=== PATIENT | female | born 2000 | race Caucasian/White ===

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

== ENCOUNTER 2018-08-31 12:29 | Emergency (ER) | payer MEDICAID, SELFPAY | END 2018-08-31 13:06 | disposition left against medical advice (07) | LOC: M ED 12:29 | DX: Z53.29 Procedure and treatment not carried out because of patient's decision for other reasons (principal) ==

== ENCOUNTER 2018-09-05 07:22 | Emergency (ER) | payer MEDICAID ==
[2018-09-05] MEDS: NS 1,000 ML IV (07:45)
[2018-09-05 08:17] LABS: BASO % 0.5 % (0.0-1.0); EOS % 0.2 % (0.0-3.0); HEMOGLOBIN 14.3 g/dl (12.0-15.5); IMMATURE GRANULOCYTE % 0.2 % (0-3.0); LYMPH # 2.7 10^3/uL (1.5-6.5); LYMPH % 31.9 % (24.0-44.0); MEAN CORPUSCULAR HEMOGLOBIN 29.7 pg (27.0-33.0); MEAN CORPUSCULAR VOLUME 87.3 fl (80.0-96.0); MONO # 0.6 10^3/uL (0.0-0.8); MONO % 6.7 % (0.0-5.0); NEUTROPHILS # 5.1 10^3/uL (1.8-7.7); NEUTROPHILS % 60.5 % (36.0-66.0); PLATELET COUNT, AUTOMATED 322 10^3/uL (150-450); RED BLOOD COUNT 4.81 10^6/uL (4.00-5.40); RED CELL DISTRIBUTION WIDTH 12.7 % (11.5-14.5); WHITE BLOOD COUNT 8.5 10^3/uL (4.0-10.0)
[2018-09-05 08:30] LABS: KETONE, URINE AUTO RFX 1+ mg/dL (NEGATIVE); LEUKOCYTE ESTERASE UR AUTO RFX NEGATIVE (NEGATIVE); MUCUS, URINE RFX SMALL (NEGATIVE); NITRITE, URINE AUTO RFX NEGATIVE (NEGATIVE); RBC, URINE AUTO RFX 1 /HPF (0-3); SPECIFIC GRAVITY UR AUTO RFX 1.011 (1.002-1.035); SQUAM EPITHELIAL CELL UR AURFX 3 /HPF (0-6); WBC, URINE AUTO RFX 1 /HPF (0-3)
[2018-09-05 08:55] LABS: HCG, SERUM QUANTITATIVE 8885 MIU/ML
== END 2018-09-05 09:31 | disposition home or self-care (01) ==
LOC: M ED 07:22
DX: Z32.01 Encounter for pregnancy test, result positive (principal); O26.851 Spotting complicating pregnancy, first trimester; O99.341 Other mental disorders complicating pregnancy, first trimester; Z79.899 Other long term (current) drug therapy
CPT/HCPCS: 76801

== ENCOUNTER → 2018-09-25 | Outpatient (CLI) | payer MEDICAID ==
[2018-09-25 18:21] LABS: BASO % 0.2 % (0.0-1.0); EOS % 0.1 % (0.0-3.0); HEMATOCRIT 41.7 % (36.0-47.0); HEMOGLOBIN 13.9 g/dl (12.0-15.5); IMMATURE GRANULOCYTE % 0.4 % (0-3.0); LYMPH # 2.2 10^3/uL (1.5-6.5); LYMPH % 20.1 % (24.0-44.0); MEAN CORPUSCULAR HEMOGLOBIN 29.8 pg (27.0-33.0); MEAN CORPUSCULAR HGB CONC 33.3 g/dl (32.0-36.5); MEAN CORPUSCULAR VOLUME 89.3 fl (80.0-96.0); MONO # 0.7 10^3/uL (0.0-0.8); MONO % 6.5 % (0.0-5.0); NEUTROPHILS # 8.1 10^3/uL (1.8-7.7); NEUTROPHILS % 72.7 % (36.0-66.0); PLATELET COUNT, AUTOMATED 320 10^3/uL (150-450); RED BLOOD COUNT 4.67 10^6/uL (4.00-5.40); RED CELL DISTRIBUTION WIDTH 12.8 % (11.5-14.5); WHITE BLOOD COUNT 11.2 10^3/uL (4.0-10.0)
[2018-09-25 21:17] LABS: CHLAMYDIA DNA AMPLIFICATION NEGATIVE (NEGATIVE); GC DNA AMPLIFICATION NEGATIVE (NEGATIVE)
[2018-09-27 12:00] LABS: HBsAg Prenatal NEGATIVE (NEGATIVE); HIV 1&2 SCREEN CENTAUR NEGATIVE (NEGATIVE); RUBELLA IgG QUALITATIVE IMMUNE (IMMUNE)
[2018-09-27 12:00] LABS: HEPATITIS C VIRUS ABY INDEX 0.1 INDEX (<0.8)
== END ==
LOC: M SMT 15:09
DX: Z36.89 Encounter for other specified antenatal screening (principal)
CPT/HCPCS: 86762

== ENCOUNTER → 2018-12-04 | Outpatient (CLI) | payer OTHER ==
[~2018-12-04] MED LIST changes: +PREN1TAB11 PO
--- NOTE | 2018-12-04 19:18 | REP ---
OB ULTRASOUND: Real-time sonographic evaluation of the gravid uterus is performed. There is a single living intrauterine gestation. The estimated gestational age is 18 weeks 5 days, EDC 05/02/2019, today's measurements indicate appropriate growth. BPD 41 mm = 18 weeks 3 days, at the 42nd percentile. HC 148 mm = 17 weeks 6 days, at the 20th percentile. AC 123 mm = 18 weeks 0 days, at the 31st percentile. Femur length 28 mm = 18 weeks 5 days, at the 49th percentile. HC/AC ratio 1.20 within normal range. Estimated weight 232 grams, 31st percentile. Cervix is closed and measures 3.5 cm in length. heart rate 141 beats per minute. SEEN/GROSSLY UNREMARKABLE Lateral ventricles Yes Posterior fossa Yes Upper lip Yes Four-chamber heart No LVOT No RVOT No Stomach Yes Cord insertion Yes Three vessel cord Yes Kidneys Yes Bladder Yes Spine No position: Breech. Placenta: Posterior and low lying, grade 1 with no previa or abruption. Placenta tip is 2.2 cm from the internal cervical os. Amniotic fluid within normal limits. Electronically Signed by David Herring MD 12/04/2018 08:23 P
== END ==
LOC: M SMT 14:29
PROVIDERS: ATTEND Obstetrics & Gynecology
DX: Z34.82 Encounter for supervision of other normal pregnancy, second trimester (principal); Z3A.18 18 weeks gestation of pregnancy

== ENCOUNTER → 2018-12-05 | Outpatient (REF) | payer OTHER | LOC: M LAB REF 17:10 | PROVIDERS: ATTEND Obstetrics & Gynecology | DX: R30.0 Dysuria (principal); M54.5 Low back pain ==

== ENCOUNTER → 2019-01-09 | Outpatient (CLI) | payer OTHER ==
--- NOTE | 2019-01-10 09:57 | REP ---
OB ULTRASOUND: Real-time sonographic evaluation of the gravid uterus performed. There is a single living intrauterine gestation, estimated gestational age 23 weeks 6 days. EDC 05/02/2019. Today's measurements indicate appropriate growth. BPD 53 mm 22 weeks 0 days, less than 5th percentile HC 209 mm 23 weeks 0 days, 22nd percentile AC 177 mm 22 weeks 4 days, 23rd percentile FL 40 mm 22 weeks 6 days, 24th percentile HC/AC ratio 1.18 within normal range. Estimated weight 532 grams, 14th percentile. Cervix is closed and measures 3.6 cm in length. heart rate 136 beats per minute. SEEN/GROSSLY UNREMARKABLE Lateral ventricles Yes Posterior fossa Yes Upper lip Yes Four-chamber heart Yes LVOT Yes RVOT Yes Stomach Yes Cord insertion Yes Three vessel cord Yes Kidneys Yes Bladder Yes Spine No Echogenic focus in left ventricle likely related to chordae tendineae. position: Breech. Placenta: Posterior and grade I with no previa or abruption. Amniotic fluid: Within normal limits. Electronically Signed by David Herring MD 01/10/2019 07:50 P
== END ==
LOC: M RAD 17:22
PROVIDERS: ATTEND Advanced Practice Midwife
DX: Z34.02 Encounter for supervision of normal first pregnancy, second trimester (principal); Z3A.23 23 weeks gestation of pregnancy

== ENCOUNTER → 2019-01-27 | Outpatient (CLI) | payer OTHER ==
--- NOTE | 2019-01-28 10:56 | REP ---
Clinical: Anatomical evaluation. Comparison: 01/09/2019 . Findings: Examination demonstrates a single live intrauterine in the cephalic presentation. motion is identified by technologist. Placenta is noted posterior and grade grade 1 without evidence for placenta previa or abruption. Amniotic fluid volume is normal. Cervix measures 3.7 cm in length and appears closed. No evidence for nuchal cord. Gestational age by LMP 26 weeks 3 days with GANGA 05/02/2019 . Gestational age by current measurements 25 weeks 5 days with GANGA 05/07/2019 . FHR equals 147 beats per minute. Estimated weight 852 grams (27th percentile). Anatomical assessment demonstrates normal structures including spine. The echogenic focus within the left cardiac ventricle is again identified and unchanged - likely representing prominent chordae tendineae. Impression: Single live intrauterine in cephalic presentation demonstrating appropriate interval growth. Echogenic focus within the left cardiac ventricle remains stable. Electronically Signed by Trell Johnson MD 01/28/2019 10:48 A
== END ==
LOC: M RAD 17:48
PROVIDERS: ATTEND Advanced Practice Midwife
DX: Z34.02 Encounter for supervision of normal first pregnancy, second trimester (principal); Z3A.25 25 weeks gestation of pregnancy

== ENCOUNTER → 2019-02-10 | Outpatient (CLI) | payer OTHER ==
[2019-02-10 16:34] LABS: BASO % 0.2 % (0.0-1.0); EOS % 0.1 % (0.0-3.0); HEMATOCRIT 34.4 % (36.0-47.0); HEMOGLOBIN 11.5 g/dl (12.0-15.5); LYMPH # 2.5 10^3/uL (1.5-6.5); LYMPH % 17.6 % (24.0-44.0); MEAN CORPUSCULAR HEMOGLOBIN 30.5 pg (27.0-33.0); MEAN CORPUSCULAR HGB CONC 33.4 g/dl (32.0-36.5); MEAN CORPUSCULAR VOLUME 91.2 fl (80.0-96.0); MONO # 0.7 10^3/uL (0.0-0.8); MONO % 4.9 % (0.0-5.0); NEUTROPHILS # 10.8 10^3/uL (1.8-7.7); NEUTROPHILS % 76.8 % (36.0-66.0); PLATELET COUNT, AUTOMATED 305 10^3/uL (150-450); RED BLOOD COUNT 3.77 10^6/uL (4.00-5.40)
== END ==
LOC: M LAB 15:00
PROVIDERS: ATTEND Advanced Practice Midwife
DX: Z34.02 Encounter for supervision of normal first pregnancy, second trimester (principal); Z3A.00 Weeks of gestation of pregnancy not specified

== ENCOUNTER 2019-02-12 23:29 | Outpatient (CLI) | payer OTHER ==
[~2019-02-12] VITALS: Ht 154.9 cm; Wt 69.8 kg
[2019-02-12 23:55] VITALS: BP 128/69
[2019-02-13 01:01] LABS: APPEARANCE, URINE CLEAR (CLEAR); BACTERIA, URINE AUTO NEGATIVE (NEGATIVE); BILIRUBIN, URINE AUTO NEGATIVE (NEGATIVE); BLOOD, URINE BLOOD NEGATIVE (NEGATIVE); COLOR, URINE YELLOW (YELLOW); GLUCOSE, URINE (UA) AUTO NEGATIVE (NEGATIVE); KETONE, URINE AUTO NEGATIVE (NEGATIVE); LEUKOCYTE ESTERASE, URINE AUTO TRACE (NEGATIVE); MUCUS, URINE SMALL (NEGATIVE); NITRITE, URINE AUTO NEGATIVE (NEGATIVE); PROTEIN, URINE AUTO NEGATIVE (NEGATIVE); RBC, URINE AUTO 10 /HPF (0-3); SPECIFIC GRAVITY URINE AUTO 1.012 (1.002-1.035); SQUAMOUS EPITHELIAL CELL UR AU 3 /HPF (0-6); UROBILINOGEN, URINE AUTO 0.2 mg/dL (0.0-2.0); WBC, URINE AUTO 4 /HPF (0-3)
[2019-02-13 01:13] VITALS: BP 137/79
--- NOTE | 2019-02-13 07:52 | IPN ---
DATE: 02/13/2019 Jimmy is a 18-year-old 1, para 0 at 28 weeks gestation with an EDC of 05/02/2018 based on last menstrual period and confirmed by first trimester ultrasound. She presents to labor and delivery today with a complaint of left sided back pain that radiates around the left hip, left buttock, and down the left thigh behind the knee. She reports some difficulty becoming comfortable trying to rest. Difficulty walking from time to time due to the discomfort. She denies regular contractions that are painful. She denies vaginal bleeding or leakage of fluid. The fetus has been active. She denies urinary signs and symptoms, dysuria, burning and pressure. Denies unusual vaginal discharge, odor, and irritation. Her care was initiated at [facility] in the first trimester. Her course has been uncomplicated thus for. OBSTETRIC HISTORY: She is primigravida. OBSTETRIC LABS: O positive, antibody screen negative, rubella immune, VDRL nonreactive. Urine culture no growth. Hep B surface antigen negative, HIV negative. Hep C antibody nonreactive. Gonorrhea and chlamydia negative. Panorama testing is low risk for aneuploidy with a male fetus. Gestational diabetic screening elevated at 131. She has not had her 3-hour glucose tolerance test. PAST MEDICAL HISTORY: Anxiety and depression. SURGERIES: Tympanostomy and tonsils and adenoidectomy. FAMILY HISTORY: Asthma. Skin cancer. Uterine cancer. SOCIAL HISTORY: The patient is single. Her partner is not at bedside, but it appears her mom is and she is supportive. She is a nonsmoker. Denies alcohol and drug use. No history of any sexually transmitted infections and denies history of abuse physical, sexual and emotional. OBJECTIVE: Temperature 97.5, pulse 96, BP 128/69. She is alert and oriented times three, smiling and talkative. She does not appear in any distress. Her abdomen is gravid, cephalic presentation. heart rate is 130 with moderate variability, positive excels 10 x 10, heart rate is appropriate for gestational age. There is no pattern of contractions. Sterile vaginal exam - long, thick, closed, firm, posterior. ASSESSMENT: Intrauterine at 28 weeks gestation. heart rate is appropriate for gestational age likely sciatica pain. PLAN: Reviewed palliative measures related to sciatica pain. Reviewed signs and symptoms of labor, kick counts and access to care. The patient and her family member have had all their questions answered and are agreeable to be discharged home. She is to keep her regular scheduled appointment and she was informed of her abnormal gestational diabetic screening and the need to call the office to get scheduled for a 3-hour glucose tolerance test.
== END 2019-02-13 01:30 | disposition home or self-care (01) ==
LOC: M LDO 23:29
PROVIDERS: ATTEND Advanced Practice Midwife
DX: O47.02 False labor before 37 completed weeks of gestation, second trimester (principal); Z3A.28 28 weeks gestation of pregnancy; O99.343 Other mental disorders complicating pregnancy, third trimester; M54.32 Sciatica, left side; O26.893 Other specified pregnancy related conditions, third trimester

== ENCOUNTER → 2019-04-10 | Outpatient (CLI) | payer OTHER ==
[2019-04-10 17:37] LABS: HEMATOCRIT 36.4 % (36.0-47.0); HEMOGLOBIN 12.1 g/dl (12.0-15.5); MEAN CORPUSCULAR HEMOGLOBIN 29.7 pg (27.0-33.0); MEAN CORPUSCULAR HGB CONC 33.2 g/dl (32.0-36.5); MEAN CORPUSCULAR VOLUME 89.2 fl (80.0-96.0); PLATELET COUNT, AUTOMATED 311 10^3/uL (150-450); RED BLOOD COUNT 4.08 10^6/uL (4.00-5.40); WHITE BLOOD COUNT 16.8 10^3/uL (4.0-10.0)
[2019-04-10 17:40] LABS: ALT/SGPT 23 U/L (12-78); BILIRUBIN,TOTAL 0.2 MG/DL (0.2-1.0); CREATININE FOR GFR 0.73 MG/DL (0.55-1.30); LDH LACTATE DEHYDROGENASE 224 U/L (84-246); URIC ACID 4.4 MG/DL (2.6-6.0)
[2019-04-10 17:58] LABS: CREATININE,RANDOM URINE 98.8 MG/DL; TOTAL PROTEIN,RANDOM URINE 18.7 MG/DL (0.0-12.0)
[2019-04-11 10:35] LABS: HIV 1&2 SCREEN CENTAUR NEGATIVE (NEGATIVE)
== END ==
LOC: M SMT 14:36
PROVIDERS: ATTEND Advanced Practice Midwife
DX: Z34.83 Encounter for supervision of other normal pregnancy, third trimester (principal); Z3A.00 Weeks of gestation of pregnancy not specified

== ENCOUNTER → 2019-04-10 | Outpatient (REF) | payer OTHER | LOC: M LAB REF 16:53 | PROVIDERS: ATTEND Advanced Practice Midwife | DX: Z34.83 Encounter for supervision of other normal pregnancy, third trimester (principal); Z3A.00 Weeks of gestation of pregnancy not specified ==

== ENCOUNTER 2019-05-02 00:16 | Inpatient (IN) | payer OTHER ==
[~2019-05-02] VITALS: Ht 154.9 cm; Wt 73.9 kg
[2019-05-02] VITALS (28 sets, daily range): BP systolic 122–147; BP diastolic 66–95
[2019-05-02] MEDS ORDERED: LR 1,000 ML IV SCH (01:19)
[2019-05-02] MEDS ORDERED: OXYTOCIN DRIP 30 UNITS in APPROPRIATE DILUENT 1 EA IV SCH ×3 (01:30→19:39)
--- NOTE | 2019-05-02 01:57 | HPEPDOC ---
Obstetrical History & Physical General Date of Admission May 02, 2019 at 01:14 History of Present Illness Jimmy is a 40 0/7 who presents to L and D with contractions. Pt's GANGA of 05/02 confirmed by 1st trimesters US. Pt states contractions started Sundaych have continually inc in intensity. Presently contractions are 8m apart with moderate intensity. Good movement is appreciated. Pt notes a small amount of light pink vaginal discharge. Chief Complaint: Contractions, term Information Provided By: Patient Age: 19 : 1 Term: 0 Pre-term: 0 Abortions: 0 Livin Care Care: Good Care Dating Final EDC: May 02, 2019 Past Medical History Past Obstetrical History : Past Obstetrical History: Primgravida Past Medical History Medical History DANY and Depression Family History Family History ASD-Brother Social History Marital Status: Single * Smoker: non-smoker Alcohol: Denies Allergies Coded Allergies: No Known Allergies (Unverified , 04/04/13) Medications Scheduled Vit No.124/Iron/Folic ( Vitamin Tablet) 1 Tab Tab, 1 TAB PO DAILY Physical Examination Physical Examination GENERAL: Alert and oriented times three. BREAST: . ABDOMEN: Gravid and non-tender to touch. FETUS: Is vertex (VTX) by sterile vaginal examination (SVE), fetus is vertex (VTX) by Boris. HEART RATE: Regular rate and rhythm. LUNGS: Clear to auscultation (CTA). EXTREMITIES: No edema. No clonus. Deep tendon reflexes (DTRs) + . Vital Signs/I&O Vital Signs Date Time Temp Pulse Resp B/P (MAP) Pulse Ox O2 Delivery O2 Flow Rate FiO2 05/02/19 00:32 98.0 98 128/69 (88) Laboratory Data 24H LABS Laboratory Tests 2 05/02/19 01:33: Serology Scanned Report Hepatitis B Testing Pertinent Laboratoy Data Blood Type: O+ RBC Antibody Screen: Negative HIV: Negative Hepatitis B: Negative Hepatitis C: Negative Rapid Plasma Reagin: Nonreactive Rubella: Immune Chlamydia/Gonorrhea: Negative Group B Streptococcus: Negative Assessment/Plan Assessment Jimmy is a 19-year-old (G)1 para (P)0 at 40+0/7 weeks by 8-week ultrasound. Presents to Labor and Delivery (L&D) for onset of labor. Plan Admit on 05/02/19. Rn Pacu and consent. Labs and intravenous (IV) per unit protocol. Counseled on Pitocin and induction of labor (IOL). Anticipate normal spontaneous delivery (). C-S as appropriate. ZACHARY WARREN Aguila-3 May 02, 2019 01:57
[2019-05-02] MEDS ORDERED: miSOPROStol 50 MCG 1/2 TAB (S0191) SL SCH (02:00)
[2019-05-02 02:13] LABS: HEMATOCRIT 34.2 % (36.0-47.0); HEMOGLOBIN 11.4 g/dl (12.0-15.5); MEAN CORPUSCULAR HEMOGLOBIN 29.5 pg (27.0-33.0); MEAN CORPUSCULAR HGB CONC 33.3 g/dl (32.0-36.5); MEAN CORPUSCULAR VOLUME 88.6 fl (80.0-96.0); PLATELET COUNT, AUTOMATED 292 10^3/uL (150-450); RED BLOOD COUNT 3.86 10^6/uL (4.00-5.40); WHITE BLOOD COUNT 14.8 10^3/uL (4.0-10.0)
--- NOTE | 2019-05-02 07:38 | IPNPDOC ---
Text Note Date of Service The patient was seen on 05/02/19. NOTE Reports SROM clear fluid that continues to leak @ 0330. Remains comfortable but states she's starting to be more uncomfortable at times FH 130, Cat I UC 2-4 minutes x 45-60 seconds SVE 2/80/-2, membranes are palpable Start pitocin augmentation. Pt is planning epidural Anticipate NSVB VS,Fishbone, I+O VS, Fishbone, I+O Laboratory Tests 05/02/19 01:48 Red Blood Count 3.86 L, Mean Corpuscular Volume 88.6, Mean Corpuscular Hemoglo bin 29.5, Mean Corpuscular Hemoglobin Concent 33.3, Red Cell Distribution Width 13.3 Vital Signs Date Time Temp Pulse Resp B/P (MAP) Pulse Ox O2 Delivery O2 Flow Rate FiO2 05/02/19 02:51 85 145/95 (112) 05/02/19 00:32 98.0 Seema Tavera CNM May 02, 2019 07:38
[2019-05-02] MEDS: LR 1,000 ML IV SCH ×2 (08:07→13:53)
[2019-05-02 08:43] LABS: HEMATOCRIT 33.4 % (36.0-47.0); HEMOGLOBIN 11.2 g/dl (12.0-15.5); MEAN CORPUSCULAR HEMOGLOBIN 29.8 pg (27.0-33.0); MEAN CORPUSCULAR HGB CONC 33.5 g/dl (32.0-36.5); MEAN CORPUSCULAR VOLUME 88.8 fl (80.0-96.0); PLATELET COUNT, AUTOMATED 282 10^3/uL (150-450); RED BLOOD COUNT 3.76 10^6/uL (4.00-5.40); WHITE BLOOD COUNT 13.3 10^3/uL (4.0-10.0)
[2019-05-02 09:14] LABS: ALT/SGPT 15 U/L (12-78); BILIRUBIN,TOTAL 0.2 MG/DL (0.2-1.0); CREATININE FOR GFR 0.67 MG/DL (0.55-1.30); LDH LACTATE DEHYDROGENASE 188 U/L (84-246); URIC ACID 5.1 MG/DL (2.6-6.0)
--- NOTE | 2019-05-02 12:59 | IPNPDOC ---
Text Note Date of Service The patient was seen on 05/02/19. NOTE Pitocin @ 4mu UC irregular, mild FH 130, moderate variability. Recurrent variable/early decels to 60's - 90's SVE 2-3/80/-2, unchanged. Leaking clear fluid Pitocin off. Will update physician VS,Lakisha, I+O VS, Lakisha, I+O Laboratory Tests 05/02/19 01:48 Red Blood Count 3.86 L, Mean Corpuscular Volume 88.6, Mean Corpuscular Hemoglobin 29.5, Mean Corpuscular Hemoglobin Concent 33.3, Red Cell Distribution Width 13.3 05/02/19 08:31 Red Blood Count 3.76 L, Mean Corpuscular Volume 88.8, Mean Corpuscular Hemoglobin 29.8, Mean Corpuscular Hemoglobin Concent 33.5, Red Cell Distribution Width 13.4, Aspartate Amino Transf (AST/SGOT) 21, Alanine Aminotransferase (ALT/SGPT) 15, Lactate Dehydrogenase 188, Total Bilirubin 0.2, Uric Acid 5.1 Vital Signs Date Time Temp Pulse Resp B/P (MAP) Pulse Ox O2 Delivery O2 Flow Rate FiO2 05/02/19 11:31 84 20 134/86 (102) 05/02/19 11:00 98.0 Seema Tavera CNM May 02, 2019 12:59
--- NOTE | 2019-05-02 18:03 | IPNPDOC ---
Text Note Date of Service The patient was seen on 05/02/19. NOTE Pitocin resumed @ [address] Hudson Variable/early decels to 80's, now with slow recovery Pitocin off Cervix unchanged Dr Hudson notified, C/S called. VS,Fishbone, I+O VS, Fishbone, I+O Laboratory Tests 05/02/19 01:48 Red Blood Count 3.86 L, Mean Corpuscular Volume 88.6, Mean Corpuscular Hemoglobin 29.5, Mean Corpuscular Hemoglobin Concent 33.3, Red Cell Distribution Width 13.3 05/02/19 08:31 Red Blood Count 3.76 L, Mean Corpuscular Volume 88.8, Mean Corpuscular Hemoglobin 29.8, Mean Corpuscular Hemoglobin Concent 33.5, Red Cell Distribution Width 13.4, Aspartate Amino Transf (AST/SGOT) 21, Alanine Aminotransferase (ALT/SGPT) 15, Lactate Dehydrogenase 188, Total Bilirubin 0.2, Uric Acid 5.1 Vital Signs Date Time Temp Pulse Resp B/P (MAP) Pulse Ox O2 Delivery O2 Flow Rate FiO2 05/02/19 16:02 107 20 147/80 (102) 05/02/19 15:18 98.3 Seema Tavera CNM May 02, 2019 18:03
[2019-05-02] MEDS ORDERED: LACTATED RINGER'S 1000 ML IV STA (18:12)
[2019-05-02] MEDS ORDERED: BICITRA 30ML SOLN UDC PO ONE (18:15)
[2019-05-02] MEDS ORDERED: AZITHROMYCIN INJ 500 MG, VIAL MATE ADAPTER 1 EACH in D5W 250 ML IV ONE (18:15)
[2019-05-02] MEDS ORDERED: ceFAZolin 2 GM/D5W 50 ML IV BAG (J0690 PER 500MG) As Ordered ONE (18:16)
[2019-05-02] MEDS ORDERED: AZITHROMYCIN INJ 500MG VIAL (J0456) As Ordered ONE (18:16)
[2019-05-02] MEDS ORDERED: BICITRA 30ML SOLN UDC As Ordered ONE (18:16)
[2019-05-02] MEDS ORDERED: dexameTHASONE 4 MG/ML 1ML VIAL (J1100) As Ordered ONE (18:22)
[2019-05-02] MEDS ORDERED: ONDANSETRON 4MG/2ML VIAL (J2405) As Ordered ONE (18:22)
[2019-05-02] MEDS ORDERED: MORPHINE PRES-FREE INJ 10 MG/10 ML VIAL (J2274) As Ordered ONE (18:23)
[2019-05-02] MEDS ORDERED: OXYTOCIN INJ 10 UNITS/ML VIAL (J2590) As Ordered ONE (18:26)
[2019-05-02 19:38] LABS: CORD GAS ABE A -9.2; CORD GAS HCO3 A 19.7 MEQ/L; CORD GAS O2 SAT A 68.5 %; CORD GAS PCO2 A 53.5 mmHg; CORD GAS PH A 7.183 UNITS; CORD GAS PO2 A 35.9 mmHg; CORD GAS SBC A 16.6 MEQ/L; CORD GAS TCO2 A 21.3 MEQ/L
[2019-05-02 19:39] LABS: CORD GAS ABE V -4.6; CORD GAS HCO3 V 23.2 MEQ/L; CORD GAS O2 SAT V 40.4 %; CORD GAS PCO2 V 53.3 mmHg; CORD GAS PH V 7.257 UNITS; CORD GAS PO2 V 21.9 mmHg; CORD GAS SBC V 19.3 MEQ/L; CORD GAS TCO2 V 24.9 MEQ/L
[2019-05-02] MEDS ORDERED: RHOGAM 300 MCG (1500 IU) INJ (J2790) IM SCH (19:45)
[2019-05-02] MEDS ORDERED: MOM 30ML SUSPENSION UDC PO PRN (19:45)
[2019-05-02] MEDS ORDERED: MEASLES,MUMPS,RUBELLA VACCINE INJ (MMR-II) (90707) SC SCH (19:45)
[2019-05-02] MEDS ORDERED: PROMETHAZINE 25 MG TAB PO PRN (19:45)
[2019-05-02] MEDS ORDERED: PERCOCET 5MG/325MG TAB PO PRN (19:45)
[2019-05-02] MEDS ORDERED: ONDANSETRON 4MG/2ML VIAL (J2405) IV PRN (20:00)
[2019-05-02] MEDS ORDERED: KETOROLAC 30 MG/ML VIAL (J1885) IV SCH (20:00)
[2019-05-02] MEDS ORDERED: fentaNYL 100 MCG/2 ML INJECTION (J3010) IV PRN (20:00)
[2019-05-02] MEDS ORDERED: MEPERIDINE INJ 25 MG/ML VIAL (J2175) IV PRN (20:00)
--- NOTE | 2019-05-02 20:02 | RO ---
DATE OF PROCEDURE: 05/02/2019 PREOPERATIVE DIAGNOSIS: Inability to augment labor with a persistent category II heart rate tracing. POSTOPERATIVE DIAGNOSIS: Inability to augment labor with a persistent category II heart rate tracing. PROCEDURE PERFORMED: Primary lower transverse section. SURGEON: Munira Hudson MD DELIVERY LEAD: None. ANESTHESIA: Spinal. ESTIMATED BLOOD LOSS: 500 mL. INTRAVENOUS FLUIDS: 1600 mL of lactated Ringer's solution. URINE OUTPUT: 100 mL. SPECIMENS: Cord blood and gases. OPERATIVE FINDINGS: Live born male infant, scores 9 and 10. Weight was 2550 grams, 5 pounds 10 ounces. DESCRIPTION OF OPERATION: After informed consent was obtained and written consent was reviewed, the patient brought to the operating room where spinal anesthesia was placed. She was then prepped and draped in a normal sterile fashion. A time-out in the operating room was then performed identifying the patient, procedure to be performed as well as drug allergies. Anesthesia was tested and deemed to be adequate. A Pfannenstiel skin incision was made, and this was carried down to the underlying rectus fascia. The fascia was then scored, then this incision was extended bilaterally. The fascia was then dissected off the underlying rectus muscles both superiorly and inferiorly. The rectus muscles were then in the midline. The peritoneum was then entered. The vesicouterine peritoneum was then tented and excised to create a bladder flap. The bladder blade was then placed to retract back the bladder. Curvilinear incision was then made in the lower uterine segment. This incision was extended, and the head was then brought to the level of the incision and delivered atraumatically followed by delivery of shoulders and corpus. The cord was then clamped times two and was cut, the infant was taken over to the warmer with a good cry. Cord blood was then obtained as well as cord gases. Placenta was then delivered grossly intact. The uterus was then exteriorized and cleared of all clots and debris. The uterine incision was then closed in two layers using #0 Vicryl, first in a running nonlocking fashion followed by a second layer for imbrication in a running nonlocking fashion. The abdomen was then suctioned. The uterus was returned into the patient's abdomen and was reinspected and noted be hemostatic. The anterior peritoneum was then reapproximated with #3-0 Vicryl. The rectus muscles were reapproximated with #3-0 Vicryl. The fascia was then closed with #0 Vicryl in a running nonlocking fashion. The subcutaneous tissue was then irrigated and suctioned. Subcutaneous tissue was then reapproximated with #3-0 Vicryl. Several subdermal stitches were placed of #3-0 Vicryl and the skin was closed with #4-0 Monocryl in subcuticular fashion. The incision was then cleaned and dried. Steri-Strips were applied as well as a dressing. The patient was then taken to recovery in stable condition. Counts were correct.
[2019-05-02] MEDS: DOCUSATE SODIUM 100 MG CAP PO SCH (21:22)
[2019-05-02] MEDS: KETOROLAC 30 MG/ML VIAL (J1885) IV SCH (21:45)
[2019-05-03] VITALS (7 sets, daily range): BP systolic 115–135; BP diastolic 66–79
[2019-05-03] MEDS: KETOROLAC 30 MG/ML VIAL (J1885) IV SCH ×3 (03:38→16:12)
[2019-05-03 06:46] LABS: HEMATOCRIT 30.4 % (36.0-47.0); HEMOGLOBIN 10.2 g/dl (12.0-15.5); MEAN CORPUSCULAR HEMOGLOBIN 30.6 pg (27.0-33.0); MEAN CORPUSCULAR HGB CONC 33.6 g/dl (32.0-36.5); MEAN CORPUSCULAR VOLUME 91.3 fl (80.0-96.0); PLATELET COUNT, AUTOMATED 297 10^3/uL (150-450); RED BLOOD COUNT 3.33 10^6/uL (4.00-5.40); WHITE BLOOD COUNT 23.8 10^3/uL (4.0-10.0)
--- NOTE | 2019-05-03 08:10 | IPNPDOC ---
Text Note Date of Service The patient was seen on 05/03/19. NOTE PO #1 Feels well. Adequate pain management. Breast and bottle feeding. Voiding VSS, afebrile, normotensive Breasts soft, nipples intact Fundus firm, NT Dressing intact, old drainage noted Lochia rubra light without odor PO #1 Routine care. Anticipate D/C in am VS,Fishbone, I+O VS, Fishbone, I+O Laboratory Tests 05/02/19 08:31 Red Blood Count 3.76 L, Mean Corpuscular Volume 88.8, Mean Corpuscular Hemoglobin 29.8, Mean Corpuscular Hemoglobin Concent 33.5, Red Cell Distribution Width 13.4, Aspartate Amino Transf (AST/SGOT) 21, Alanine Aminotransferase (ALT/SGPT) 15, Lactate Dehydrogenase 188, Total Bilirubin 0.2, Uric Acid 5.1 05/03/19 06:31 Red Blood Count 3.33 L, Mean Corpuscular Volume 91.3, Mean Corpuscular Hemoglobin 30.6, Mean Corpuscular Hemoglobin Concent 33.6, Red Cell Distribution Width 13.2 Vital Signs Date Time Temp Pulse Resp B/P (MAP) Pulse Ox O2 Delivery O2 Flow Rate FiO2 05/03/19 06:27 97.2 105 18 126/66 (86) 98 I&O- Last 24 Hours up to 6 AM 05/03/19 06:00 Intake Total 2493.7 ml Output Total 2075 ml Balance 418.7 ml Seema Tavera CNM May 03, 2019 08:10
[2019-05-03] MEDS: PRENATAL VITAMINS CHEWABLE TABLET PO SCH (09:54)
[2019-05-03] MEDS: DOCUSATE SODIUM 100 MG CAP PO SCH ×2 (09:54→22:01)
[2019-05-03] MEDS: PERCOCET 5MG/325MG TAB PO PRN (22:01)
[2019-05-03] MEDS: IBUPROFEN 800 MG TAB PO SCH (23:47)
[2019-05-04 02:05] VITALS: BP 126/66
[2019-05-04] MEDS ORDERED: IBUP80TA PO (04:15)
[2019-05-04] MEDS ORDERED: PERCOCET PO (04:15)
[2019-05-04 05:58] VITALS: BP 116/67
[2019-05-04] MEDS: DOCUSATE SODIUM 100 MG CAP PO SCH (07:43)
[2019-05-04] MEDS: PRENATAL VITAMINS CHEWABLE TABLET PO SCH (07:43)
[2019-05-04] MEDS: IBUPROFEN 800 MG TAB PO SCH (07:44)
[2019-05-04] MEDS: PERCOCET 5MG/325MG TAB PO PRN (07:44)
[2019-05-07] MEDS ORDERED: OXYC1TAB23 PO (13:16)
--- NOTE | 2019-05-28 17:44 | DSES ---
DATE OF ADMISSION: 05/02/2019 DATE OF DISCHARGE: 05/04/2019 DISCHARGE DIAGNOSIS: section for inability to augment labor with persistent category 2 heart rate tracing. CONDITION ON DISCHARGE: Stable. PROCEDURES PERFORMED WHILE IN THE HOSPITAL: 1. Spinal anesthesia. 2. section. HISTORY AND HOSPITAL COURSE: Ms. Connors presented with complaints of contractions. Her labor was augmented with the inability to augment secondary to persistent category 2 heart tracing. She underwent an uncomplicated section for that indication productive of a live born male infant, scores 9 and 10, weight was 2550 grams or 5 pounds, 10 ounces. Her estimated blood loss was 500 mL. Ms. Connors did well postoperatively, by postoperative day number two had met all discharge criteria, and she was discharged home in stable condition. PHYSICAL EXAMINATION ON DISCHARGE: VITAL SIGNS: Stable. She was afebrile. GENERAL APPEARANCE: She was well-appearing, in no acute distress. 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 Her incision was dressed. DISCHARGE MEDICATIONS: Ibuprofen and Percocet. DISCHARGE INSTRUCTIONS: 1. She was instructed to followup in two weeks for incision check. 2. Report severe pain, heavy vaginal bleeding, fever or incisional issues.
== END 2019-05-04 11:20 | disposition home or self-care (01) | DRG 540 ==
LOC: M LDO 00:16 → M LDI 01:14 → M OBS 21:08
PROVIDERS: ADMIT Specialist; ATTEND Obstetrics & Gynecology
PROC: 10D00Z1 Extraction of Products of Conception, Low, Open Approach (ICD-10-PCS; principal; 2019-05-02 18:51)
DX: O76 Abnormality in fetal heart rate and rhythm complicating labor and delivery (principal); Z3A.40 40 weeks gestation of pregnancy; Z37.0 Single live birth

== ENCOUNTER → 2020-01-05 | Outpatient (REF) | payer OTHER ==
[~2020-01-05] MED LIST changes: +IBUP80TA PO; +OXYC1TAB23 PO; +PERCOCET PO
== END ==
LOC: M PLALAB 09:58
PROVIDERS: ATTEND Obstetrics & Gynecology
DX: O34.211 Maternal care for low transverse scar from previous cesarean delivery (principal); Z3A.00 Weeks of gestation of pregnancy not specified

== ENCOUNTER 2020-01-08 06:01 | Day surgery (SDC) | payer OTHER ==
[~2020-01-08] VITALS: Ht 157.5 cm; Wt 76.4 kg
[~2020-01-08 06:01] MED LIST changes: +LR 1,000 ML IV ONE
[2020-01-08 06:47] LABS: HEMATOCRIT 42.9 % (36.0-47.0); MEAN CORPUSCULAR HEMOGLOBIN 29.5 pg (27.0-33.0); MEAN CORPUSCULAR HGB CONC 32.6 g/dl (32.0-36.5); MEAN CORPUSCULAR VOLUME 90.3 fl (80.0-96.0); PLATELET COUNT, AUTOMATED 290 10^3/uL (150-450); RED BLOOD COUNT 4.75 10^6/uL (4.00-5.40); WHITE BLOOD COUNT 8.9 10^3/uL (4.0-10.0)
[2020-01-08] MEDS ORDERED: dexameTHASONE 4 MG/ML 1ML VIAL (J1100) As Ordered ONE (07:36)
[2020-01-08] MEDS ORDERED: fentaNYL 100 MCG/2 ML INJECTION (J3010) As Ordered ONE (07:36)
[2020-01-08] MEDS ORDERED: MIDAZOLAM INJ 2 MG/2 ML VIAL (J2250) As Ordered ONE (07:36)
[2020-01-08] MEDS ORDERED: ONDANSETRON 4MG/2ML VIAL (J2405) As Ordered ONE (07:36)
[2020-01-08] MEDS ORDERED: propofoL 200 MG/20 ML VIAL As Ordered ONE (07:36)
[2020-01-08] MEDS ORDERED: KETOROLAC 60 MG/2 ML VIAL (J1885) As Ordered ONE (07:36)
[2020-01-08] MEDS ORDERED: LIDOCAINE 2% INJ 100 MG/5 ML SDV (FOR ANES.) As Ordered ONE (07:36)
[2020-01-08] MEDS ORDERED: METOCLOPRAMIDE INJ 10MG/2ML VIAL (J2765) IV PRN (09:00)
[2020-01-08] MEDS ORDERED: ONDANSETRON 4MG/2ML VIAL (J2405) IV PRN (09:00)
[2020-01-08] MEDS ORDERED: oxyCODONE 5MG TAB PO PRN (09:00)
[2020-01-08] MEDS ORDERED: LR 1,000 ML IV SCH ×2 (09:00→10:01)
[2020-01-08] MEDS ORDERED: fentaNYL 100 MCG/2 ML INJECTION (J3010) IV PRN (09:00)
[2020-01-08 09:15] VITALS: BP 121/74
[2020-01-08] MEDS ORDERED: ACETAMINOPHEN 500 MG TAB PO ONE (10:00)
[2020-01-08] MEDS ORDERED: DOXYCYCLINE HYCLATE 100 MG TAB PO ONE (10:00)
--- NOTE | 2020-01-08 12:07 | RO ---
DATE OF PROCEDURE: 01/08/2020 PREPROCEDURE DIAGNOSIS: Embryonic demise 8 weeks gestation. POSTPROCEDURE DIAGNOSIS: Embryonic demise 8 weeks gestation. PROCEDURE: Dilation, evacuation and curettage. SURGEON: Dr. Veto Baca QUALITY SUPERVISOR: ANESTHESIA: General endotracheal. ESTIMATED BLOOD LOSS: 50 mL. URINE OUTPUT: 50 mL. FINDINGS: Moderate amount of products of conception. DESCRIPTION OF PROCEDURE: The patient taken to the operating room where general endotracheal anesthesia was induced. She was prepped and draped in sterile fashion in the dorsal lithotomy position. The bladder was emptied with the catheter. A speculum was placed in the vagina. The anterior lip of the cervix was grasped with a tenaculum. The cervix was dilated with tapered dilators. A 10 mm suction curette was placed through the internal os and suction device was activated. The curette was gently rotated until products of conception were noted coming through the suction tubing. Sharp curettage was performed. Uterine cavity was deemed to be empty. Good hemostasis was noted. All instruments were removed. Sponge and instrument counts were correct.
== END 2020-01-08 10:07 | disposition home or self-care (01) ==
LOC: M SDC 06:01
PROVIDERS: ATTEND Specialist
DX: O02.1 Missed abortion (principal)
CPT/HCPCS: 36415; 59820; 85027; 88305; J1100; J1885; J2250; J2405; J3010

== ENCOUNTER → 2020-07-26 | Outpatient (CLI) | payer OTHER ==
[~2020-07-26] MED LIST changes: -LR 1,000 ML IV ONE
== END ==
LOC: M LABSMTC 12:58
PROVIDERS: ATTEND Pediatrics
DX: Z20.828 Contact with and (suspected) exposure to other viral communicable diseases (principal)
CPT/HCPCS: C9803; U0002

== ENCOUNTER → 2020-07-30 | Outpatient (REF) | payer OTHER ==
[2020-07-30 16:51] LABS: HCG, SERUM QUALITATIVE POSITIVE (NEGATIVE)
== END ==
LOC: M LAB REF 16:14
PROVIDERS: ATTEND Physician Assistant Medical
DX: Z34.00 Encounter for supervision of normal first pregnancy, unspecified trimester (principal)

== ENCOUNTER → 2020-08-19 | Outpatient (CLI) | payer OTHER ==
--- NOTE | 2020-08-19 15:11 | REP ---
INDICATION: W INCONCLUSIVE VIABILITY PT AT MAIN REG. Supervision of COMPARISON: None. TECHNIQUE: Transabdominal scanning. FINDINGS: Transabdominal scanning demonstrates a single living intrauterine gestation in a free-floating lie. The crown-rump length measures 14 mm. This corresponds with a gestational age estimate of 7 weeks 5 days. A heart rate is recorded at 147 beats per minute. No gross anomaly is seen. There is no significant extra uterine abnormality. IMPRESSION: Viable single intrauterine gestation at 7 weeks 5 days by crown-rump length. GANGA by sonography April 02, 2021. No complication is identified. <Electronically signed by Kendell Lopez > 08/19/20 [id number]
== END ==
LOC: M RAD 11:55
PROVIDERS: ATTEND Advanced Practice Midwife
DX: O36.80X0 Pregnancy with inconclusive fetal viability, not applicable or unspecified (principal)

== ENCOUNTER → 2020-11-19 | Outpatient (CLI) | payer OTHER ==
--- NOTE | 2020-11-19 18:43 | REP ---
INDICATION: ECOUNTER FOR SUPRVSNOF NORMAL 2ND TRIMESTER COMPARISON: None. TECHNIQUE: Transabdominal obstetrical ultrasound with color Doppler evaluation. FINDINGS: Examination demonstrates a single live intrauterine in cephalic presentation. motion is identified by technologist. Placenta is noted posterior and grade 1 without evidence for placenta previa or abruption. Amniotic fluid volume is normal. Cervix measures 3.4 cm in length and appears closed.. Gestational age by LMP 20 weeks 3 days with GANGA 04/05/2021. Gestational age by current measurements 21 weeks 2 days with GANGA 03/30/2021. FHR equals 144 beats per minute. BPD: 5.0 cm 21 weeks 1 day HC: 18.9 cm 21 weeks 1 day AC: 16.1 cm 21 weeks 1 day FL: 3.6 cm 21 weeks 3 days HL: 3.3 cm 21 weeks 2 days HC/AC: 1.17 Estimated weight 413 grams (89thpercentile). Anatomical assessment demonstrates normal structures including cranium, choroid plexus, cavum, cerebellum/posterior fossa, facial features, lungs, four-chamber heart/ventricular outflow tracts, diaphragm, stomach, cord insertion/three-vessel cord, kidneys/bladder, and extremities. IMPRESSION: 1. Single live intrauterine in cephalic presentation demonstrating appropriate interval growth. 2. Echogenic focus within the left cardiac ventricle likely cord tendineae. 3. Limited evaluation of spine due to positioning. 4. Remainder of the anatomical assessment is complete and normal. <Electronically signed by Trell Johnson > 11/19/20 [id number]
== END ==
LOC: M RAD 14:49
PROVIDERS: ATTEND Advanced Practice Midwife
DX: Z34.82 Encounter for supervision of other normal pregnancy, second trimester (principal); Z36.89 Encounter for other specified antenatal screening; Z3A.20 20 weeks gestation of pregnancy

== ENCOUNTER 2020-12-19 21:26 | Outpatient (CLI) | payer OTHER ==
[~2020-12-19] VITALS: Ht 157.5 cm; Wt 71.6 kg
[2020-12-19 21:53] VITALS: BP 122/66
--- NOTE | 2020-12-19 22:29 | IPNPDOC ---
Text Note Date of Service The patient was seen on 12/19/20. NOTE Triage Note Jimmy is a 20yo with SIUP at approx 24wk presenting this evening because she has had a couple episodes of spotting (none currently) and some episodes of cramping (none currently). Had cramping earlier in the evening that went away, then had intercourse, and cramping came back. Not present currently. Called out of work for two double shifts and needs a note saying she can go back to work. No f/c/n/v/CP/SOB. Good FM. No LOF. 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 Normal exam, vitals wnl. Reassuring status. Plan: -Discharge home -Provided note ok to resume work duties -Keep next routine OB visit -Increase hydration -Discussed return precautions -Safe for discharge MD NYDIA Kemp,Lakisha, I+O VSLakisha I+O Vital Signs Date Time Temp Pulse Resp B/P (MAP) Pulse Ox O2 Delivery O2 Flow Rate FiO2 12/19/20 21:53 97.7 92 18 122/66 (84) Rachel Smith MD Dec 19, 2020 22:29
== END 2020-12-19 22:30 | disposition home or self-care (01) ==
LOC: M LDO 21:26
PROVIDERS: ATTEND Obstetrics & Gynecology
DX: O26.852 Spotting complicating pregnancy, second trimester (principal); Z3A.24 24 weeks gestation of pregnancy

== ENCOUNTER → 2020-12-30 | Outpatient (CLI) | payer OTHER ==
--- NOTE | 2020-12-30 16:47 | REP ---
INDICATION: F/U ANATOMY/ECHOGENIC FOCUS L VENTRICLE/SPINE COMPARISON: 11/19/2020 TECHNIQUE: Transabdominal obstetrical ultrasound with color Doppler evaluation. FINDINGS: Examination demonstrates a single live intrauterine in cephalic presentation. motion is identified by technologist. Placenta is noted posterior and grade 1 without evidence for placenta previa or abruption. Amniotic fluid volume is normal. Cervix measures 3.1 cm in length and appears closed.. Gestational age by LMP 26 weeks 2 days with GANGA 04/05/2021. Gestational age by current measurements 26 weeks 4 days with GANGA 04/03/2021. Gestational age by 1st ultrasound 26 weeks 5 days with GANGA 04/02/2021. FHR equals 146 beats per minute. Estimated weight 928 grams (42ndpercentile). Anatomical assessment demonstrates normal structures including cranium, facial profile, nose/lips, stomach, kidneys/bladder, spine and three-vessel cord. IMPRESSION: 1. Single live intrauterine demonstrating appropriate estimated weight. 2. Echogenic focus within the left cardiac ventricle again noted and unchanged likely prominent chordae tendineae. Images of the spine are now obtained and normal. <Electronically signed by Trell Johnson > 12/30/20 [id number]
== END ==
LOC: M WHC 15:26
PROVIDERS: ATTEND Advanced Practice Midwife
DX: Z34.82 Encounter for supervision of other normal pregnancy, second trimester (principal); Z3A.26 26 weeks gestation of pregnancy

== ENCOUNTER → 2021-02-09 | Outpatient (REF) | payer OTHER | LOC: M LAB REF 16:35 | PROVIDERS: ATTEND Advanced Practice Midwife | DX: R31.9 Hematuria, unspecified (principal) ==

== ENCOUNTER → 2021-03-08 | Outpatient (CLI) | payer OTHER ==
[2021-03-08 15:59] LABS: HEMATOCRIT 36.7 % (36.0-47.0); MEAN CORPUSCULAR HEMOGLOBIN 29.6 pg (27.0-33.0); MEAN CORPUSCULAR HGB CONC 32.7 g/dl (32.0-36.5); MEAN CORPUSCULAR VOLUME 90.6 fl (80.0-96.0); PLATELET COUNT, AUTOMATED 280 10^3/uL (150-450); RED BLOOD COUNT 4.05 10^6/uL (4.00-5.40); WHITE BLOOD COUNT 12.4 10^3/uL (4.0-10.0)
== END ==
LOC: M WUC 14:04
PROVIDERS: ATTEND Advanced Practice Midwife
DX: Z34.82 Encounter for supervision of other normal pregnancy, second trimester (principal)

== ENCOUNTER → 2021-03-09 | Outpatient (REF) | payer OTHER | LOC: M LAB REF 16:28 | PROVIDERS: ATTEND Advanced Practice Midwife | DX: Z34.83 Encounter for supervision of other normal pregnancy, third trimester (principal) ==

== ENCOUNTER → 2021-03-26 | Outpatient (CLI) | payer OTHER | LOC: M LABSMTC 11:24 | PROVIDERS: ATTEND Anesthesiology | DX: Z20.828 Contact with and (suspected) exposure to other viral communicable diseases (principal); Z11.59 Encounter for screening for other viral diseases ==

== ENCOUNTER 2021-03-30 07:57 | Inpatient (IN) | payer OTHER ==
[~2021-03-30] VITALS: Ht 157.5 cm; Wt 72.3 kg
[2021-03-30] MEDS ORDERED: ACET500P3 PO (08:22)
[2021-03-30] MEDS ORDERED: ACET-842 PO (08:22)
[2021-03-30 09:15] LABS: HEMATOCRIT 35.1 % (36.0-47.0); HEMOGLOBIN 11.6 g/dl (12.0-15.5); MEAN CORPUSCULAR HEMOGLOBIN 29.3 pg (27.0-33.0); MEAN CORPUSCULAR VOLUME 88.6 fl (80.0-96.0); PLATELET COUNT, AUTOMATED 274 10^3/uL (150-450); RED BLOOD COUNT 3.96 10^6/uL (4.00-5.40); WHITE BLOOD COUNT 12.2 10^3/uL (4.0-10.0)
[2021-03-30] MEDS ORDERED: LACTATED RINGER'S 1000 ML IV STA (09:37)
[2021-03-30] MEDS ORDERED: ceFAZolin SOD 2 GM in IV 1 EA IV ONE (09:40)
[2021-03-30] MEDS ORDERED: LR 1,000 ML IV SCH ×2 (09:40→11:15)
[2021-03-30] MEDS ORDERED: BICITRA 30ML SOLN UDC PO ONE (09:40)
[2021-03-30] MEDS ORDERED: ceFAZolin 2 GM/D5W 50 ML IV BAG (J0690 PER 500MG) As Ordered ONE (09:44)
[2021-03-30] MEDS ORDERED: METOCLOPRAMIDE INJ 10MG/2ML VIAL (J2765 PER 1) IV PRN (10:06)
[2021-03-30] MEDS ORDERED: ONDANSETRON 4MG/2ML VIAL IV PRN ×2 (10:06→11:15)
[2021-03-30] MEDS ORDERED: NALBUPHINE HCL 10 MG/ML AMP (J2300) IV PRN ×2 (10:06→11:15)
[2021-03-30] MEDS ORDERED: diphenhydrAMINE 50MG/ML VIAL (J1200) IV PRN (10:06)
[2021-03-30] MEDS ORDERED: NALOXONE INJ 0.4MG/1ML VIAL (J2310 PER 1MG) IV PRN ×2 (10:06)
[2021-03-30] MEDS ORDERED: MORPHINE PRES-FREE INJ 10 MG/10 ML VIAL (J2274) As Ordered ONE (10:24)
[2021-03-30] MEDS ORDERED: MIDAZOLAM INJ 2MG/2ML VIAL (J2250 PER 1MG) As Ordered ONE (10:24)
[2021-03-30] MEDS ORDERED: ONDANSETRON 4MG/2ML VIAL As Ordered ONE (10:24)
[2021-03-30] MEDS ORDERED: dexameTHASONE 4 MG/ML 1ML VIAL (J1100 PER 1MG) As Ordered ONE (10:24)
[2021-03-30] MEDS ORDERED: OXYTOCIN 30 UNITS IN 0.9% NaCl 500ML IV BAG (J2590) As Ordered ONE ×2 (10:24→11:48)
[2021-03-30] MEDS ORDERED: PHENYLephrine 500MCG 5ML (100MCG/ML) SYRINGE As Ordered ONE (10:24)
[2021-03-30] MEDS ORDERED: KETOROLAC 60MG 2ML VIAL As Ordered ONE (10:24)
[2021-03-30] MEDS ORDERED: METOCLOPRAMIDE INJ 10MG/2ML VIAL (J2765 PER 1) As Ordered ONE (10:29)
[2021-03-30 10:46] LABS: CORD GAS ABE A -1.5; CORD GAS HCO3 A 26.8 MEQ/L; CORD GAS O2 SAT A 28.6 %; CORD GAS PCO2 A 58.6 mmHg; CORD GAS PH A 7.278 UNITS; CORD GAS PO2 A 16.4 mmHg; CORD GAS SBC A 21.3 MEQ/L; CORD GAS TCO2 A 28.6 MEQ/L
[2021-03-30 10:48] LABS: CORD GAS ABE V -1.5; CORD GAS HCO3 V 25.2 MEQ/L; CORD GAS O2 SAT V 55.8 %; CORD GAS PCO2 V 49.2 mmHg; CORD GAS PH V 7.327 UNITS; CORD GAS PO2 V 22.8 mmHg; CORD GAS TCO2 V 26.7 MEQ/L
[2021-03-30] MEDS ORDERED: ACETAMINOPHEN 650 MG SUPP PR PRN (10:50)
[2021-03-30] MEDS ORDERED: MEASLES,MUMPS,RUBELLA VACCINE INJ (MMR-II) (90707) SC SCH (10:50)
[2021-03-30] MEDS ORDERED: IBUPROFEN 800 MG TAB PO PRN (10:50)
[2021-03-30] MEDS ORDERED: RHOGAM 300 MCG (1500 IU) INJ (J2790) IM SCH (10:50)
[2021-03-30] MEDS ORDERED: OXYTOCIN DRIP 30 UNITS in IV 1 EA IV SCH (10:50)
[2021-03-30] MEDS ORDERED: fentaNYL 100 MCG/2 ML INJECTION (J3010) IV PRN (11:15)
[2021-03-30] MEDS ORDERED: SIMETHICONE 80MG CHEW TAB PO PRN (12:00)
[2021-03-30 13:30] VITALS: BP 129/75
[2021-03-30 14:00] VITALS: BP 120/71
[2021-03-30 15:00] VITALS: BP 125/67
[2021-03-30 16:06] VITALS: BP 123/66
[2021-03-30 17:55] VITALS: BP 140/54
[2021-03-30] MEDS: IBUPROFEN 800 MG TAB PO SCH (20:01)
[2021-03-30 22:00] VITALS: BP 125/78
[2021-03-31 02:00] VITALS: BP 114/56
[2021-03-31] MEDS: IBUPROFEN 800 MG TAB PO SCH ×3 (05:18→19:26)
[2021-03-31 05:52] VITALS: BP 116/60
[2021-03-31] MEDS: PERCOCET 5MG/325MG TAB PO PRN ×3 (06:11→21:03)
[2021-03-31 06:48] LABS: HEMOGLOBIN 9.9 g/dl (12.0-15.5); MEAN CORPUSCULAR HEMOGLOBIN 29.5 pg (27.0-33.0); MEAN CORPUSCULAR HGB CONC 31.9 g/dl (32.0-36.5); MEAN CORPUSCULAR VOLUME 92.3 fl (80.0-96.0); PLATELET COUNT, AUTOMATED 270 10^3/uL (150-450); RED BLOOD COUNT 3.36 10^6/uL (4.00-5.40); WHITE BLOOD COUNT 15.4 10^3/uL (4.0-10.0)
[2021-03-31] MEDS: PRENATAL VITAMINS CHEWABLE TABLET PO SCH (09:00)
[2021-03-31 09:57] VITALS: BP 118/63
[2021-03-31 13:54] VITALS: BP 132/82
[2021-03-31 18:04] VITALS: BP 116/72
[2021-03-31 22:08] VITALS: BP 131/76
[2021-04-01 02:00] VITALS: BP 129/74
[2021-04-01] MEDS: IBUPROFEN 800 MG TAB PO SCH (03:42)
[2021-04-01 06:00] VITALS: BP 132/74
[2021-04-01] MEDS ORDERED: PERCOCET PO (07:39)
[2021-04-01] MEDS ORDERED: IBUP80TA PO (07:39)
--- NOTE | 2021-04-01 07:44 | DS.PDOC ---
Discharge Summary General Date of Admission Mar 30, 2021 at 07:57 Date of Discharge 04/01/2021 Attending Physician: Calvin Musa DO Discharge Summary PROCEDURES PERFORMED DURING STAY: 1 spinal anesthesia 2 section. ADMITTING DIAGNOSES: 1. Term for repeat . DISCHARGE DIAGNOSES: 1. Same As above. COMPLICATIONS/CHIEF COMPLAINT: Repeat C Section. HISTORY OF PRESENT ILLNESS: Mrs. Connors presented for scheduled section She underwent a repeat section. Patient did well pos toperatively by postoperative day #2 had met all discharge criteria is as discharged home in stable condition DISCHARGE MEDICATIONS: Please see below. ALLERGIES: Please see below. PHYSICAL EXAMINATION ON DISCHARGE: VITAL SIGNS: Please see below. GENERAL: No distress HEENT: WNL ABDOMINAL EXAMINATION: Fundus firm. Dressing intact EXTREMITIES: Equal strength and motion SKIN: Intact NEUROLOGICAL EXAMINATION: Grossly intact PSYCHIATRIC EXAMINATION: Appropriate LABORATORY DATA: Please see below. PROGNOSIS: Good ACTIVITY: As tolerated. Pelvic rest. DIET: As tolerated DISCHARGE PLAN: Discharge today. Remove dressing day 5 DISPOSITION: Home DISCHARGE INSTRUCTIONS: 1. Pelvic rest. Continue vitamins. Medications as ordered. Call with fever, nausea, vomiting, chills, foul lochia, wound exudate or evidence infection. DISCHARGE CONDITION: Stable Vital Signs/I&Os Vital Signs Date Time Temp Pulse Resp B/P (MAP) Pulse Ox O2 Delivery O2 Flow Rate FiO2 04/01/21 06:00 97.7 81 20 132/74 (93) 98 Room Air Discharge Medications Scheduled Ibuprofen (Ibuprofen) 800 Mg Tablet, 800 MG PO Q8H Scheduled PRN Acetaminophen (Acetaminophen) 500 Mg Tablet, 1,000 MG PO for PAIN OR, (Reported) Oxycodone/Acetaminophen (Oxycodone-Acetaminophen 5-325) 1 Each Tablet, 1 TAB PO Q4H PRN for MILD/MODERATE PAIN (PS 1-7) Miscellaneous Medications Acetaminophen (Tylenol Extra Strength) 500 Mg Powd.pack, 500 MG PO, (Reported) Allergies Coded Allergies: No Known Allergies (Unverified , 03/17/21) PATRICIO DANIEL MD. Apr 01, 2021 07:44
[2021-04-01] MEDS: PRENATAL VITAMINS CHEWABLE TABLET PO SCH (08:02)
[2021-04-01] MEDS: PERCOCET 5MG/325MG TAB PO PRN (08:03)
== END 2021-04-01 12:07 | disposition home or self-care (01) | DRG 540 ==
LOC: M LDI 07:57 → M OBS 13:04
PROVIDERS: ADMIT Obstetrics & Gynecology; ATTEND Obstetrics & Gynecology
PROC: 10D00Z1 Extraction of Products of Conception, Low, Open Approach (ICD-10-PCS; principal; 2021-03-30 09:30)
DX: O34.211 Maternal care for low transverse scar from previous cesarean delivery (principal); Z37.0 Single live birth; Z3A.39 39 weeks gestation of pregnancy

== ENCOUNTER → 2021-09-09 | Outpatient (REF) ==
[~2021-09-09] MED LIST changes: +ACET-842 PO; +ACET500P3 PO
[2021-09-09 14:22] LABS: RSV AMPLIFICATION NEGATIVE (NEGATIVE)
== END ==
LOC: M LABSMTC 10:07
PROVIDERS: ATTEND Pediatrics
DX: Z11.52 Encounter for screening for COVID-19 (principal)

== ENCOUNTER → 2021-11-05 | Outpatient (REF) | LOC: M LABSMTC 11:10 | PROVIDERS: ATTEND Pediatrics | DX: Z20.822 Contact with and (suspected) exposure to COVID-19 (principal) ==

== ENCOUNTER → 2022-08-28 | Outpatient (REF) | LOC: M EMP 08:00 | PROVIDERS: ATTEND Family Medicine | DX: Z11.52 Encounter for screening for COVID-19 (principal) ==

== ENCOUNTER → 2023-04-16 | Outpatient (CLI) | payer OTHER | LOC: M WUC 15:16 | PROVIDERS: ATTEND Student in an Organized Health Care Education/Training Program | DX: M25.522 Pain in left elbow (principal); M25.572 Pain in left ankle and joints of left foot ==

== ENCOUNTER → 2023-12-13 | Outpatient (REF) | payer OTHER ==
[2023-12-13 13:49] LABS: HEMOGLOBIN 14.4 g/dl (12.0-15.5); MEAN CORPUSCULAR HEMOGLOBIN 30.8 pg (27.0-33.0); MEAN CORPUSCULAR HGB CONC 33.5 g/dl (32.0-36.5); MEAN CORPUSCULAR VOLUME 91.9 fl (80.0-96.0); PLATELET COUNT, AUTOMATED 270 10^3/uL (150-450); RED BLOOD COUNT 4.68 10^6/uL (4.00-5.40); WHITE BLOOD COUNT 8.2 10^3/uL (4.0-10.0)
[2023-12-13 14:25] LABS: HCG, SERUM QUANTITATIVE 269.6 MIU/ML (<4.2)
[2023-12-13 14:54] LABS: HIV 1&2 SCREEN NEGATIVE (NEGATIVE)
[2023-12-13 15:02] LABS: HEPATITIS C VIRUS ABY INDEX 0.02 INDEX (<0.8)
== END ==
LOC: M LAB REF 12:16
PROVIDERS: ATTEND Obstetrics & Gynecology
DX: O36.80X0 Pregnancy with inconclusive fetal viability, not applicable or unspecified (principal)

== ENCOUNTER → 2023-12-19 | Outpatient (CLI) | payer OTHER | LOC: M LAB 12:50 | PROVIDERS: ATTEND Obstetrics & Gynecology | DX: O36.80X0 Pregnancy with inconclusive fetal viability, not applicable or unspecified (principal); Z32.01 Encounter for pregnancy test, result positive; Z3A.00 Weeks of gestation of pregnancy not specified ==

== ENCOUNTER → 2023-12-26 | Outpatient (REF) | payer OTHER | LOC: M LAB REF 12:36 | PROVIDERS: ATTEND Obstetrics & Gynecology | DX: O36.80X0 Pregnancy with inconclusive fetal viability, not applicable or unspecified (principal); Z32.01 Encounter for pregnancy test, result positive; Z3A.00 Weeks of gestation of pregnancy not specified ==

== ENCOUNTER 2024-01-02 19:13 | Emergency (ER) | payer OTHER ==
[~2024-01-02] VITALS: Ht 157.5 cm; Wt 84.5 kg
[2024-01-02 20:06] LABS: BASO % 0.5 % (0.0-1.0); EOS % 0.4 % (0.0-3.0); HEMOGLOBIN 13.8 g/dl (12.0-15.5); LYMPH # 2.1 10^3/uL (1.5-5.0); LYMPH % 25.3 % (24.0-44.0); MEAN CORPUSCULAR HGB CONC 32.9 g/dl (32.0-36.5); MEAN CORPUSCULAR VOLUME 91.3 fl (80.0-96.0); MONO # 0.7 10^3/uL (0.0-0.8); MONO % 8.8 % (2.0-8.0); NEUTROPHILS # 5.4 10^3/uL (1.5-8.5); NEUTROPHILS % 64.8 % (36.0-66.0); PLATELET COUNT, AUTOMATED 250 10^3/uL (150-450); WHITE BLOOD COUNT 8.4 10^3/uL (4.0-10.0)
[2024-01-02 20:42] LABS: BLOOD UREA NITROGEN 7 MG/DL (9-23); CALCIUM LEVEL 8.3 MG/DL (8.5-10.1); CARBON DIOXIDE LEVEL 24 MMOL/L (20-31); CHLORIDE LEVEL 108 MMOL/L (98-107); CREATININE FOR GFR 0.58 MG/DL (0.55-1.30); GLOMERULAR FILTRATION RATE > 60.0 (>60); GLUCOSE, FASTING 105 MG/DL (60-100); POTASSIUM SERUM 4.2 MMOL/L (3.5-5.1); SODIUM LEVEL 139 MMOL/L (136-145)
[2024-01-02 20:55] LABS: HCG, SERUM QUANTITATIVE 2864.2 MIU/ML (<4.2)
[2024-01-02 22:08] VITALS: BP 140/85; TEMP 98.6; O2SAT 98
== END 2024-01-02 22:12 | disposition home or self-care (01) ==
LOC: M ED 19:13
DX: O03.9 Complete or unspecified spontaneous abortion without complication (principal); O02.0 Blighted ovum and nonhydatidiform mole; Z79.1 Long term (current) use of non-steroidal anti-inflammatories (NSAID); Z79.899 Other long term (current) drug therapy

== ENCOUNTER → 2024-10-09 | Outpatient (REF) | payer OTHER ==
[2024-10-09 13:33] LABS: HEMATOCRIT 39.1 % (36.0-47.0); HEMOGLOBIN 13.3 g/dl (12.0-15.5); MEAN CORPUSCULAR HEMOGLOBIN 30.5 pg (27.0-33.0); MEAN CORPUSCULAR VOLUME 89.7 fl (80.0-96.0); PLATELET COUNT, AUTOMATED 261 10^3/uL (150-450); RED BLOOD COUNT 4.36 10^6/uL (4.00-5.40); WHITE BLOOD COUNT 9.4 10^3/uL (4.0-10.0)
[2024-10-09 14:33] LABS: HIV 1&2 SCREEN NEGATIVE (NEGATIVE)
[2024-10-09 14:41] LABS: HEPATITIS C VIRUS ABY INDEX < 0.02 INDEX (<0.8)
[2024-10-09 14:43] LABS: HCG, SERUM QUANTITATIVE 38165.5 MIU/ML (<4.2)
== END ==
LOC: M LAB REF 12:33
PROVIDERS: ATTEND Obstetrics & Gynecology
DX: O36.80X0 Pregnancy with inconclusive fetal viability, not applicable or unspecified (principal); Z3A.00 Weeks of gestation of pregnancy not specified

== ENCOUNTER 2024-10-28 20:19 | Emergency (ER) | payer OTHER ==
[~2024-10-28] VITALS: Ht 157.5 cm; Wt 97.6 kg
[2024-10-28 20:22] VITALS: BP 145/72; TEMP 97.6; O2SAT 100
[2024-10-28 21:11] LABS: BASO % 0.3 % (0.0-1.0); EOS % 0.3 % (0.0-3.0); HEMATOCRIT 38.2 % (36.0-47.0); LYMPH # 2.7 10^3/uL (1.5-5.0); LYMPH % 22.4 % (24.0-44.0); MEAN CORPUSCULAR VOLUME 91.2 fl (80.0-96.0); MONO # 0.5 10^3/uL (0.0-0.8); MONO % 4.3 % (2.0-8.0); NEUTROPHILS # 8.6 10^3/uL (1.5-8.5); NEUTROPHILS % 72.4 % (36.0-66.0); PLATELET COUNT, AUTOMATED 265 10^3/uL (150-450); RED BLOOD COUNT 4.19 10^6/uL (4.00-5.40); WHITE BLOOD COUNT 11.8 10^3/uL (4.0-10.0)
[2024-10-28 21:27] LABS: APPEARANCE, URINE HAZY (CLEAR); BACTERIA, URINE AUTO NEGATIVE (NEGATIVE); BILIRUBIN, URINE AUTO NEGATIVE (NEGATIVE); BLOOD, URINE BLOOD NEGATIVE (NEGATIVE); COLOR, URINE YELLOW (YELLOW); GLUCOSE, URINE (UA) AUTO NEGATIVE (NEGATIVE); KETONE, URINE AUTO TRACE mg/dL (NEGATIVE); LEUKOCYTE ESTERASE, URINE AUTO NEGATIVE (NEGATIVE); MUCUS, URINE SMALL (NEGATIVE); NITRITE, URINE AUTO NEGATIVE (NEGATIVE); PROTEIN, URINE AUTO NEGATIVE (NEGATIVE); RBC, URINE AUTO 3 /HPF (0-3); SPECIFIC GRAVITY URINE AUTO 1.017 (1.002-1.035); SQUAMOUS EPITHELIAL CELL UR AU 2 /HPF (0-6); UROBILINOGEN, URINE AUTO 0.2 mg/dL (0.0-2.0); WBC, URINE AUTO 3 /HPF (0-3)
[2024-10-28 21:40] LABS: BLOOD UREA NITROGEN 7 MG/DL (9-23); CALCIUM LEVEL 9.1 MG/DL (8.5-10.1); CARBON DIOXIDE LEVEL 26 MMOL/L (20-31); CHLORIDE LEVEL 106 MMOL/L (98-107); CREATININE FOR GFR 0.53 MG/DL (0.55-1.30); GLOMERULAR FILTRATION RATE > 60.0 (>60); GLUCOSE, FASTING 106 MG/DL (60-100); SODIUM LEVEL 138 MMOL/L (136-145)
[2024-10-28 21:57] LABS: HCG, SERUM QUANTITATIVE 13123.2 MIU/ML (<4.2)
== END 2024-10-29 01:14 | disposition left against medical advice (07) ==
LOC: M ED 20:19
DX: Z53.21 Procedure and treatment not carried out due to patient leaving prior to being seen by health care provider (principal)

== ENCOUNTER → 2024-11-04 | Outpatient (CLI) | payer OTHER ==
[2024-11-04 15:16] LABS: HEMATOCRIT 38.2 % (36.0-47.0); HEMOGLOBIN 12.7 g/dl (12.0-15.5); MEAN CORPUSCULAR HGB CONC 33.2 g/dl (32.0-36.5); MEAN CORPUSCULAR VOLUME 93.2 fl (80.0-96.0); PLATELET COUNT, AUTOMATED 258 10^3/uL (150-450); WHITE BLOOD COUNT 8.3 10^3/uL (4.0-10.0)
[2024-11-04 16:13] LABS: HIV 1&2 SCREEN NEGATIVE (NEGATIVE)
[2024-11-04 16:21] LABS: HEPATITIS C VIRUS ABY INDEX < 0.02 INDEX (<0.8)
[2024-11-04 17:09] LABS: GC DNA AMPLIFICATION NEGATIVE (NEGATIVE)
== END ==
LOC: M PLALAB 11:44
PROVIDERS: ATTEND Specialist
DX: Z34.92 Encounter for supervision of normal pregnancy, unspecified, second trimester (principal)

== ENCOUNTER → 2024-12-04 | Outpatient (CLI) | payer OTHER | LOC: M WHC 08:31 | PROVIDERS: ATTEND Specialist | DX: Z34.82 Encounter for supervision of other normal pregnancy, second trimester (principal); Z3A.21 21 weeks gestation of pregnancy ==

== ENCOUNTER → 2025-01-01 | Outpatient (CLI) | payer OTHER ==
[2025-01-01 16:14] LABS: HEMATOCRIT 36.5 % (36.0-47.0); HEMOGLOBIN 11.9 g/dl (12.0-15.5); MEAN CORPUSCULAR HEMOGLOBIN 30.9 pg (27.0-33.0); MEAN CORPUSCULAR HGB CONC 32.6 g/dl (32.0-36.5); MEAN CORPUSCULAR VOLUME 94.8 fl (80.0-96.0); PLATELET COUNT, AUTOMATED 309 10^3/uL (150-450); RED BLOOD COUNT 3.85 10^6/uL (4.00-5.40)
[2025-01-01 16:42] LABS: GLUCOSE CHALLENGE TEST 1 HOUR 88 MG/DL (LESS THAN 140)
[2025-01-01 17:41] LABS: HIV 1&2 SCREEN NEGATIVE (NEGATIVE)
[2025-01-01 17:49] LABS: HEPATITIS C VIRUS ABY INDEX 0.03 INDEX (<0.8)
[2025-01-01 19:21] LABS: GC DNA AMPLIFICATION NEGATIVE (NEGATIVE)
[2025-01-02 12:23] LABS: Trichomonas vaginalis (AMP) NOT DETECTED (NEGATIVE)
== END ==
LOC: M PLALAB 12:20
PROVIDERS: ATTEND Nurse Practitioner Family
DX: Z34.82 Encounter for supervision of other normal pregnancy, second trimester (principal)

== ENCOUNTER 2025-01-22 04:51 | Outpatient (CLI) | payer OTHER ==
[2025-01-22 04:56] VITALS: BP 132/80
[2025-01-22 06:21] LABS: HEMATOCRIT 32.5 % (36.0-47.0); HEMOGLOBIN 10.9 g/dl (12.0-15.5); MEAN CORPUSCULAR HEMOGLOBIN 30.3 pg (27.0-33.0); MEAN CORPUSCULAR HGB CONC 33.5 g/dl (32.0-36.5); MEAN CORPUSCULAR VOLUME 90.3 fl (80.0-96.0); PLATELET COUNT, AUTOMATED 256 10^3/uL (150-450); WHITE BLOOD COUNT 9.9 10^3/uL (4.0-10.0)
[2025-01-22 06:52] LABS: ALBUMIN 2.7 G/DL (3.2-5.2); ALKALINE PHOSPHATASE 62 U/L (35-104); ALT/SGPT 12 U/L (7.0-40); AST/SGOT 13 U/L (<34); BILIRUBIN,TOTAL 0.2 MG/DL (0.3-1.2); BLOOD UREA NITROGEN 6 MG/DL (9-23); CALCIUM LEVEL 8.3 MG/DL (8.5-10.1); CARBON DIOXIDE LEVEL 24 MMOL/L (20-31); CHLORIDE LEVEL 106 MMOL/L (98-107); CREATININE FOR GFR 0.59 MG/DL (0.55-1.30); GLOMERULAR FILTRATION RATE > 60.0 (>60); GLUCOSE, FASTING 105 MG/DL (60-100); POTASSIUM SERUM 3.3 MMOL/L (3.5-5.1); SODIUM LEVEL 138 MMOL/L (136-145)
== END 2025-01-22 07:20 | disposition home or self-care (01) ==
LOC: M LDO 04:51
PROVIDERS: ATTEND Advanced Practice Midwife
DX: O26.893 Other specified pregnancy related conditions, third trimester (principal); O26.23 Pregnancy care for patient with recurrent pregnancy loss, third trimester; O34.219 Maternal care for unspecified type scar from previous cesarean delivery; R11.0 Nausea; R10.84 Generalized abdominal pain; Z3A.28 28 weeks gestation of pregnancy
CPT/HCPCS: 36415; 59025; 80053; 85027; G0463

== ENCOUNTER 2025-01-22 17:56 | Emergency (ER) | payer OTHER ==
[~2025-01-22] VITALS: Ht 157.5 cm; Wt 73.6 kg
[2025-01-22 18:02] VITALS: BP 120/75; TEMP 96.6; O2SAT 98
== END 2025-01-22 18:03 | disposition admitted as inpatient to this hospital (09) ==
LOC: M ED 17:56
DX: Z53.21 Procedure and treatment not carried out due to patient leaving prior to being seen by health care provider (principal)

== ENCOUNTER 2025-01-22 18:07 | Outpatient (CLI) | payer OTHER ==
[~2025-01-22] VITALS: Ht 157.5 cm; Wt 73.4 kg
[2025-01-22 18:44] VITALS: BP 126/79
[2025-01-22] MEDS: ONDANSETRON 4MG ORAL DISINTEGRATING TAB PO ONE (20:00)
== END 2025-01-22 20:20 | disposition home or self-care (01) ==
LOC: M LDO 18:07
PROVIDERS: ATTEND Advanced Practice Midwife
DX: O26.893 Other specified pregnancy related conditions, third trimester (principal); O26.23 Pregnancy care for patient with recurrent pregnancy loss, third trimester; O34.219 Maternal care for unspecified type scar from previous cesarean delivery; O21.2 Late vomiting of pregnancy; M54.50 Low back pain, unspecified; Z3A.28 28 weeks gestation of pregnancy
CPT/HCPCS: 59025; G0463

== ENCOUNTER → 2025-02-24 | Outpatient (CLI) | payer OTHER | LOC: M WHC 12:17 | PROVIDERS: ATTEND Advanced Practice Midwife | DX: Z34.83 Encounter for supervision of other normal pregnancy, third trimester (principal); Z3A.33 33 weeks gestation of pregnancy ==

== ENCOUNTER → 2025-06-25 | Outpatient (RCR) ==
[~2025-06-25] MED LIST changes: +COLA100C5 PO
== END ==
LOC: M EMPSKH 06-14 13:48
PROVIDERS: ATTEND Family Medicine
DX: Z20.828 Contact with and (suspected) exposure to other viral communicable diseases (principal)

== ENCOUNTER → 2025-07-25 | Outpatient (RCR) | LOC: M EMPSKH 07-05 05:45 | PROVIDERS: ATTEND Family Medicine | DX: Z20.828 Contact with and (suspected) exposure to other viral communicable diseases (principal) ==